=== PATIENT | female | born 1960 | race Caucasian/White ===

== ENCOUNTER 2024-04-08 15:15 | Outpatient (CLI) | payer OTHER, SELFPAY ==
--- NOTE | 2024-04-08 15:23 | MR_ITS ---
WS: [id number] MRI RIGHT KNEE HISTORY: EFFUSION R KNEE COMPARISON: None available. Anterior cruciate ligament: Increased T2 and fluid signal in the central ACL throughout its entire course. The majority of the fibers are normally oriented. There is no full-thickness tear. Posterior cruciate ligament: Intact. Medial collateral ligament: MCL is being displaced from the joint line by the extruded meniscus. There is a moderate amount of fluid surrounding the MCL. No tear. Posterior lateral corner structures: Intact but there is fluid along the posterior lateral corner structures. Medial menisci: Diffusely abnormal signal and shape of the posterior horn consistent with a complex tear involving nearly the entire meniscus including the meniscal root. This meniscus is extruded from the joint line. Anterior horn is intact. Lateral meniscus: Intact. Normal signal, size and shape. Extensor mechanism: Distal quadriceps tendon and patellar tendons are intact. Fluid and soft tissue: Moderate-sized suprapatellar joint effusion. There is mild diffuse soft tissue edema surrounding the knee. Tiny Dougherty's cyst. Osseous and articular structures: Patellofemoral compartment: Mild narrowing of patellofemoral joint space with mild chondromalacia involving the medial facet. No marrow edema. Additional edema and fluid in the infrapatellar fat pad. Medial compartment: Moderate narrowing of the medial compartment with diffuse moderate to severe chondromalacia with full-thickness cartilage defects. Acute appearing marrow edema in the femoral condyles extending into the metaphysis. There is a small amount of edema in the tibial plateau. Lateral compartment: Mild narrowing of the lateral compartment with moderate chondromalacia. Greatest cartilaginous defects along the weightbearing surface of the femoral condyle. Small amount of edema along the tibial plateau greatest towards the tibial spine. MR/MR knee RT wo con* [id number] IMPRESSION: 1. Abnormal signal throughout the central ACL consistent with a partial intras ubstance tear. No full-thickness tear. 2. Mild MCL sprain but no tear. MCL is being extruded from the joint line by a n extruded meniscus. 3. Mild posterior lateral corner structure sprain. Increased fluid in the popl iteus tendon is likely distention of the bursa. 4. Diffuse complex meniscal tear involving the posterior horn medial meniscus. Meniscus is extruded from the joint line. 5. Moderate suprapatellar joint effusion with soft tissue edema. 6. Infrapatellar fat pad edema. 7. Moderate narrowing the medial compartment with diffuse moderate to severe c hondromalacia. 8. Mild narrowing of the patellofemoral and lateral compartments. Additional c hondromalacia as described above. 9. Marrow edema most significant in the medial femoral condyle extending into the metaphysis. There is additional edema along the medial and lateral tibial p lateau.
== END 2024-04-08 15:16 | disposition home or self-care (01) ==
PROVIDERS: Visit Provider Orthopaedic Surgery
DX: M25.461 Effusion, right knee (principal); R93.6 Abnormal findings on diagnostic imaging of limbs; S83.411A Sprain of medial collateral ligament of right knee, initial encounter; S83.8X1A Sprain of other specified parts of right knee, initial encounter; X58.XXXA Exposure to other specified factors, initial encounter; S83.241A Other tear of medial meniscus, current injury, right knee, initial encounter; M94.261 Chondromalacia, right knee
CPT/HCPCS: 73721